=== PATIENT | female | born 1950 | race Caucasian/White ===

== ENCOUNTER 2024-08-01 15:59 | Inpatient (IN) | payer MEDICARE, MEDICAID ==
[~2024-08-01] VITALS: Ht 170.2 cm; Wt 106.8 kg
[2024-08-01 16:52] LABS: BASOPHILS # (AUTO) 0.1 X10'3 (0-0.2); BASOPHILS % (AUTO) 0.7 % (0-1); EOSINOPHILS # (AUTO) 0.3 X10'3 (0-0.9); EOSINOPHILS % (AUTO) 3.7 % (0-6); HEMATOCRIT 40.1 % (35.0-45.0); HEMOGLOBIN 13.9 g/dl (12.0-16.0); LYMPHOCYTES # (AUTO) 2.3 X10'3 (1.1-4.8); LYMPHOCYTES % (AUTO) 31.5 % (21-51); MEAN CORPUSCULAR HEMOGLOBIN 30.7 PG (27.0-31.0); MEAN CORPUSCULAR HGB CONC 34.6 g/dL (33.0-36.5); MEAN CORPUSCULAR VOLUME 88.8 FL (78-98); MONOCYTES # (AUTO) 0.5 X10'3 (0-0.9); MONOCYTES % (AUTO) 6.5 % (2-12); NEUTROPHILS # (AUTO) 4.2 X10'3 (1.8-7.7); NEUTROPHILS % (AUTO) 57.6 % (42-75); PLATELET COUNT 238 X10'3 (140-440); RED BLOOD COUNT 4.51 X10'6 (4.20-5.60); RED CELL DISTRIBUTION WIDTH 14.3 % (11.5-14.5); WHITE BLOOD COUNT 7.3 X10'3 (4.5-11.0)
[2024-08-01 17:11] LABS: CHLORIDE 104 MMOL/L (99-107); GLUCOSE 87 MG/DL (70-104); POTASSIUM 3.9 MMOL/L (3.5-5.1); SODIUM 140 MMOL/L (135-145)
[2024-08-01 17:12] LABS: ALANINE AMINOTRANSFERASE 31 U/L (12-78); ALBUMIN/GLOBULIN RATIO 1.1 (1.1-1.5); ALKALINE PHOSPHATASE 142 IU/L (46-116); ANION GAP 8 (8-16); ASPARTATE AMINO TRANSFERASE 23 U/L (10-37); BILIRUBIN,TOTAL 0.5 MG/DL (0.1-1.0); BLOOD UREA NITROGEN 15 MG/DL (7-18); BUN/CREATININE RATIO 20.5 (10.0-20.0); CREATININE 0.73 MG/DL (0.40-0.90); PRO BRAIN NATRIURETIC PEPTIDE 134 PG/ML (0-125); TOTAL PROTEIN 7.8 G/DL (6.4-8.2); eCRCL 66 ML/MIN; eGFR 78 ML/MIN
[2024-08-01] MEDS: aspirin 81mg tab.chew PO ONE (20:44)
[2024-08-01 20:54] LABS: D-DIMER 0.42 MG/L FEU (0-0.50)
[2024-08-01] MEDS ORDERED: magnesium sulf-water 2g/50mL 50 ML IV PRN (21:45)
[2024-08-01] MEDS ORDERED: mag hydrox/Alum hydrox/simeth 30ml oral suspension PO PRN (21:45)
[2024-08-01] MEDS ORDERED: nitroGLYCERIN 0.4mg SUBLingual tab SL PRN (21:45)
[2024-08-01] MEDS ORDERED: potassium Cl 20 mEq SR tablet PO PRN ×2 (21:45)
[2024-08-01] MEDS ORDERED: metoprolol tartrate 1mg/ml inj IV PRN (21:45)
[2024-08-01] MEDS ORDERED: magnesium sulf-water 4G/100mL 100 ML IV PRN (21:45)
[2024-08-01] MEDS ORDERED: aminophylline 250mg/10ml inj. IV PRN (21:45)
[2024-08-01] MEDS ORDERED: magnesium hydroxide 30ml (MOM) UD suspension PO PRN (21:45)
[2024-08-01] MEDS ORDERED: ondansetron/PF 4mg/2ml inj IV PRN (21:45)
[2024-08-01] MEDS ORDERED: potassium Cl 40MEQ/1/2NS 520ml 520 ML IV PRN (21:45)
[2024-08-01] MEDS ORDERED: magnesium Cl slow-release 64mg tablet PO PRN (21:45)
[2024-08-01] MEDS ORDERED: ATOR20TA66 PO (22:13)
[2024-08-01] MEDS ORDERED: LISI5TAB22 PO (22:13)
[2024-08-01] MEDS ORDERED: OXYB15TA19 PO (22:13)
[2024-08-01] MEDS ORDERED: PANT40TA54 PO (22:13)
[2024-08-01] MEDS ORDERED: METF-900 PO (22:13)
[2024-08-01] MEDS ORDERED: LEVO100T9 PO (22:13)
[2024-08-01] MEDS ORDERED: HYDR12.55 PO (22:13)
[2024-08-01] MEDS: metoprolol succinate 25mg (24-HOUR) SR. Tablet PO SCH (22:22)
[2024-08-01] MEDS ORDERED: dextrose 50%-water 50ml dispensing syringe IV PRN ×2 (22:25)
[2024-08-01] MEDS ORDERED: glucagon, human recombinant 1mg kit SUBCUT PRN (22:25)
[2024-08-01] MEDS ORDERED: DEXTROSE 15 GM of carb/4 tabs (each vial/BOTTLE has 4 tablets) PO PRN ×2 (22:25)
[2024-08-01 22:33] LABS: MAGNESIUM 1.9 MG/DL (1.5-2.4); PHOSPHORUS 4.3 MG/DL (2.3-4.5)
[2024-08-01 22:36] LABS: HEMOGLOBIN A1C 6.1 % (4.5-6.2)
[2024-08-01 23:22] LABS: THYROID STIMULATING HORMONE 1.36 ulU/ml (0.34-4.50)
[2024-08-02] VITALS (10 sets, daily range): BP systolic 151–171; BP diastolic 62–76; PULSE 68–86; RESP 14–16; O2SAT 97–98
[2024-08-02 02:12] LABS: BASOPHILS % (AUTO) 0.5 % (0-1); EOSINOPHILS # (AUTO) 0.3 X10'3 (0-0.9); HEMOGLOBIN 12.9 g/dl (12.0-16.0); LYMPHOCYTES # (AUTO) 2.3 X10'3 (1.1-4.8); LYMPHOCYTES % (AUTO) 36.9 % (21-51); MEAN CORPUSCULAR HEMOGLOBIN 30.4 PG (27.0-31.0); MEAN CORPUSCULAR HGB CONC 33.9 g/dL (33.0-36.5); MEAN CORPUSCULAR VOLUME 89.8 FL (78-98); MEAN PLATELET VOLUME 8.3 FL (7.4-10.4); MONOCYTES # (AUTO) 0.4 X10'3 (0-0.9); MONOCYTES % (AUTO) 6.7 % (2-12); NEUTROPHILS # (AUTO) 3.3 X10'3 (1.8-7.7); NEUTROPHILS % (AUTO) 51.9 % (42-75); PLATELET COUNT 213 X10'3 (140-440); RED BLOOD COUNT 4.23 X10'6 (4.20-5.60); RED CELL DISTRIBUTION WIDTH 14.3 % (11.5-14.5); WHITE BLOOD COUNT 6.3 X10'3 (4.5-11.0)
[2024-08-02 02:28] LABS: ALBUMIN 3.3 G/DL (3.4-5.0); ANION GAP 7 (8-16); BLOOD UREA NITROGEN 17 MG/DL (7-18); BUN/CREATININE RATIO 21.5 (10.0-20.0); CALCIUM 9.2 MG/DL (8.5-10.1); CHLORIDE 104 MMOL/L (99-107); CHOL/HDL RATIO 3.7 (0.00-4.99); CHOLESTEROL 149 MG/DL (0-200); CREATININE 0.79 MG/DL (0.40-0.90); GLUCOSE 122 MG/DL (70-104); HDL CHOLESTEROL 40 MG/DL (35-60); POTASSIUM 3.8 MMOL/L (3.5-5.1); SODIUM 140 MMOL/L (135-145); TOTAL CARBON DIOXIDE 29.3 MMOL/L (24-32); TRIGLYCERIDES 150 MG/DL (20-135); eCRCL 61 ML/MIN; eGFR 71 ML/MIN
[2024-08-02 02:34] LABS: LDL CHOLESTEROL 83 MG/DL (50-100)
[2024-08-02] MEDS: INSULIN LISPRO 100 UNIT/ML INSULN.PEN MULTI-DOSE SQ SCH (07:00)
[2024-08-02] MEDS: K and/or MAG REPLACEMENT MC SCH (07:10)
[2024-08-02] MEDS: aspirin 81mg tab.chew PO SCH (07:36)
[2024-08-02] MEDS: oxybutynin 5mg tablet PO SCH (07:37)
[2024-08-02] MEDS: pantoprazole 40mg Tablet.DR PO SCH (07:38)
[2024-08-02] MEDS: lisinopril 5mg tablet PO SCH (07:39)
[2024-08-02] MEDS: levoTHYROXINE 100mcg tablet PO SCH (07:39)
[2024-08-02] MEDS: atorvastatin 20mg tablet PO SCH (07:40)
[2024-08-02] MEDS ORDERED: aminophylline 500mg/20ml vial ONE (09:15)
[2024-08-02] MEDS: regadenoson 0.4mg/5ml syringe IV PRN (09:28)
[2024-08-02] MEDS: acetaminophen 325mg tablet PO PRN (11:44)
[2024-08-03 02:20] LABS: BASOPHILS % (AUTO) 0.7 % (0-1); EOSINOPHILS # (AUTO) 0.2 X10'3 (0-0.9); EOSINOPHILS % (AUTO) 4.6 % (0-6); HEMATOCRIT 37.5 % (35.0-45.0); HEMOGLOBIN 12.7 g/dl (12.0-16.0); LYMPHOCYTES # (AUTO) 1.2 X10'3 (1.1-4.8); LYMPHOCYTES % (AUTO) 21.2 % (21-51); MEAN CORPUSCULAR HEMOGLOBIN 30.7 PG (27.0-31.0); MEAN CORPUSCULAR VOLUME 90.3 FL (78-98); MEAN PLATELET VOLUME 8.5 FL (7.4-10.4); MONOCYTES # (AUTO) 0.4 X10'3 (0-0.9); MONOCYTES % (AUTO) 8.2 % (2-12); NEUTROPHILS # (AUTO) 3.5 X10'3 (1.8-7.7); NEUTROPHILS % (AUTO) 65.3 % (42-75); PLATELET COUNT 190 X10'3 (140-440); RED BLOOD COUNT 4.15 X10'6 (4.20-5.60); RED CELL DISTRIBUTION WIDTH 14.5 % (11.5-14.5); WHITE BLOOD COUNT 5.4 X10'3 (4.5-11.0)
[2024-08-03 02:44] LABS: ALBUMIN 3.3 G/DL (3.4-5.0); ANION GAP 7 (8-16); BLOOD UREA NITROGEN 16 MG/DL (7-18); BUN/CREATININE RATIO 21.1 (10.0-20.0); CHLORIDE 105 MMOL/L (99-107); CREATININE 0.76 MG/DL (0.40-0.90); GLUCOSE 116 MG/DL (70-104); SODIUM 140 MMOL/L (135-145); TOTAL CARBON DIOXIDE 28.1 MMOL/L (24-32); eCRCL 63 ML/MIN; eGFR 74 ML/MIN
[2024-08-03 07:15] VITALS: BP 139/65; PULSE 66; RESP 21; TEMP 97.3; O2SAT 97
[2024-08-03] MEDS: acetaminophen 325mg tablet PO PRN (09:22)
[2024-08-03 11:00] VITALS: BP 126/64; PULSE 70; RESP 20; TEMP 98.4; O2SAT 96
== END 2024-08-03 14:40 | disposition home or self-care (01) | DRG 303 ==
LOC: ER 16:00 → ED HOLD 21:48 → PCU 3S 08-03 07:10
PROVIDERS: ADMIT Internal Medicine Critical Care Medicine; ATTEND Family Medicine
PROC: 4A02XM4 Measurement of Cardiac Total Activity, External Approach (ICD-10-PCS; principal; 2024-08-02)
PROC: 3E033HZ Introduction of Radioactive Substance into Peripheral Vein, Percutaneous Approach (ICD-10-PCS; 2024-08-02)
DX: I25.119 Atherosclerotic heart disease of native coronary artery with unspecified angina pectoris (principal); E11.9 Type 2 diabetes mellitus without complications; E03.9 Hypothyroidism, unspecified; E78.00 Pure hypercholesterolemia, unspecified; I10 Essential (primary) hypertension; K21.9 Gastro-esophageal reflux disease without esophagitis; Z90.710 Acquired absence of both cervix and uterus
CPT/HCPCS: 36415; 71045; 76536; 78452; 80048; 80053; 80061; 82948; 83036; 83735; 83880; 84100; 84443; 84484; 85025; 85379; 93005; 93017; 93306; 99285; A6250; A9500; G0378; J0280; J2785